=== PATIENT | male | born 1950 | race Caucasian/White ===

== ENCOUNTER 2016-11-15 16:08 | Emergency (ER) | payer MEDICARE, OTHER ==
[~2016-11-15 16:08] MED LIST: ALDACTONE25 MG PO; AMLODIPINE BESY10 MG PO; ASPIRIN CHEWABL81 MG PO; BRILINTA90 MG PO; COREG 3.125M3.125 MG PO; ELIQUIS5 MG PO; LASIX40 MG PO; LIPITOR TAB 2020 MG PO; LISINOPRIL20 MG PO; NITROGLYCERIN0.4 MG SL
== END 2016-11-15 19:40 | disposition left against medical advice (07) ==
LOC: ER1 16:08
DX: Z53.21 Procedure and treatment not carried out due to patient leaving prior to being seen by health care provider (principal)

== ENCOUNTER → 2020-11-24 | Outpatient (CLI) | payer OTHER ==
[~2020-11-24] MED LIST changes: +AUGMENTIN 875-1 EACH PO; +BUMETANIDE1 MG PO; +BUMETANIDE2 MG PO; +BUMEX 1MG TABLET1 MG PO; +CARVEDILOL3.125 MG PO; +COREG 12.5MG12.5 MG PO; +COREG12.5 MG PO; +GLUCOTROL 10 MG10 MG PO; +GLUCOTROL5 MG PO; +HYDROCODON-ACE1 EAC4 PO; +K-TAB ER20 MEQ PO; +KLOR-CON M1010 MEQ PO; +LEVOFLOXACIN500 MG PO; +LEVOTHYROXINE75 MC1 PO; +LISINOPRIL10 MG PO; +LISINOPRIL2.5 MG PO; +LISINOPRIL5 MG PO; +ZANTAC300 MG PO
== END ==
LOC: EXRD 11:18
DX: Z45.02 Encounter for adjustment and management of automatic implantable cardiac defibrillator (principal); I48.0 Paroxysmal atrial fibrillation; I42.0 Dilated cardiomyopathy; I50.22 Chronic systolic (congestive) heart failure; R91.8 Other nonspecific abnormal finding of lung field
CPT/HCPCS: 71046

== ENCOUNTER → 2020-11-26 | Outpatient (CLI) | payer MEDICARE, OTHER ==
[2020-11-26 07:56] LABS: HEMOGLOBIN 12.9 gm/dl (14.0-17.5); RED BLOOD COUNT 4.65 M/UL (4.20-5.50); WHITE BLOOD COUNT 5.9 K/UL (4.5-11.0)
== END ==
LOC: CATH 07:04
PROVIDERS: Internal Medicine Cardiovascular Disease
DX: Z45.02 Encounter for adjustment and management of automatic implantable cardiac defibrillator (principal); I42.0 Dilated cardiomyopathy; I12.9 Hypertensive chronic kidney disease with stage 1 through stage 4 chronic kidney disease, or unspecified chronic kidney disease; E11.22 Type 2 diabetes mellitus with diabetic chronic kidney disease; N18.9 Chronic kidney disease, unspecified; I50.23 Acute on chronic systolic (congestive) heart failure; I25.10 Atherosclerotic heart disease of native coronary artery without angina pectoris; I48.21 Permanent atrial fibrillation; F32.9 Major depressive disorder, single episode, unspecified; K21.9 Gastro-esophageal reflux disease without esophagitis; E03.9 Hypothyroidism, unspecified; I25.2 Old myocardial infarction; M19.90 Unspecified osteoarthritis, unspecified site; Z87.891 Personal history of nicotine dependence; Z98.61 Coronary angioplasty status; Z98.890 Other specified postprocedural states; Z79.01 Long term (current) use of anticoagulants; Z79.82 Long term (current) use of aspirin; Z79.84 Long term (current) use of oral hypoglycemic drugs; Z79.899 Other long term (current) drug therapy
CPT/HCPCS: 36415; 80048; 85025; 93641; 99152; 99153; C1882; J1200; J2250; J3010; J3370; J3480; J7040; J7050

== ENCOUNTER 2021-10-13 16:40 | Inpatient (IN) | payer MEDICARE, OTHER ==
[~2021-10-13] VITALS: Ht 172.7 cm; Wt 94.3 kg
[~2021-10-13 16:40] MED LIST changes: -LEVOTHYROXINE75 MC1 PO; +LEVOTHYROXINE75 MCG PO; +LIPITOR80 MG PO
[2021-10-13 19:29] LABS: HEMOGLOBIN 11.6 gm/dl (14.0-17.5); RED BLOOD COUNT 3.9 M/UL (4.20-5.50); WHITE BLOOD COUNT 10.7 K/UL (4.5-11.0)
[2021-10-14 08:30] LABS: HEMOGLOBIN 11.3 gm/dl (14.0-17.5); RED BLOOD COUNT 3.86 M/UL (4.20-5.50)
[2021-10-14] MEDS ORDERED: CARVEDILOL3.125 MG PO (10:30)
[2021-10-14] MEDS ORDERED: SERTRALINE HCL25 MG PO (10:31)
[2021-10-14] MEDS ORDERED: ISOSORBIDE MONO30 MG PO (10:31)
[2021-10-17 03:01] LABS: HEMOGLOBIN 10.6 gm/dl (14.0-17.5); RED BLOOD COUNT 3.63 M/UL (4.20-5.50); WHITE BLOOD COUNT 6.6 K/UL (4.5-11.0)
[2021-10-21 02:20] LABS: HEMOGLOBIN 10.2 gm/dl (14.0-17.5); RED BLOOD COUNT 3.48 M/UL (4.20-5.50); WHITE BLOOD COUNT 7.1 K/UL (4.5-11.0)
--- NOTE | 2021-10-21 11:12 | NUR ---
PATIENT SKIN TEAR TO RIGHT HAND, CLEANED AND DERMABOND APPLIED. PATIENT TOLERATED WELL, BLEEDING STOPPED.
[2021-10-22 02:59] LABS: HEMOGLOBIN 10.2 gm/dl (14.0-17.5); RED BLOOD COUNT 3.48 M/UL (4.20-5.50)
--- NOTE | 2021-10-22 10:15 | NUR ---
AT 0900 PATIENT SIGNED CONSENT FOR THORACENTESIS BY DR SARMIENTO AFTER PROCEDUE EXPLAINED IN DETAIL. PATIENT TOLERATED PROCEDURE WELL. 1400ML FLUID REMOVED. BANDAID APPLIED AT INSERTION SITE ON RIGHT BACK. RECHECKED AT 10AM NO BLEEDING NOTED. WILL CONTINUE TO MONITOR
[2021-10-23 03:30] LABS: HEMOGLOBIN 9.9 gm/dl (14.0-17.5); RED BLOOD COUNT 3.36 M/UL (4.20-5.50); WHITE BLOOD COUNT 6.7 K/UL (4.5-11.0)
[2021-10-24 05:08] LABS: RED BLOOD COUNT 3.42 M/UL (4.20-5.50); WHITE BLOOD COUNT 6.2 K/UL (4.5-11.0)
[2021-10-25 11:21] LABS: HEMOGLOBIN 10.1 gm/dl (14.0-17.5); RED BLOOD COUNT 3.41 M/UL (4.20-5.50); WHITE BLOOD COUNT 8.2 K/UL (4.5-11.0)
[2021-10-26 01:44] LABS: HEMOGLOBIN 10.1 gm/dl (14.0-17.5); RED BLOOD COUNT 3.42 M/UL (4.20-5.50); WHITE BLOOD COUNT 8.9 K/UL (4.5-11.0)
--- NOTE | 2021-10-26 06:11 | NUR ---
I HAD [id number] IN OUT
--- NOTE | 2021-10-27 09:51 | NUR ---
PER DR LILLY PATIENT BLADDER IRRIGATION STOPPED, PATIENT RESTARTED ON DOBUTAMINE DRIP. AWARE
--- NOTE | 2021-10-27 09:57 | NUR ---
GETTING PATIENT UP TO CHAIR, HE HAS BECOME WEAKER, AND IS NOW AN ASSIST OF 2
[2021-10-28 02:12] LABS: HEMOGLOBIN 9.7 gm/dl (14.0-17.5); RED BLOOD COUNT 3.25 M/UL (4.20-5.50)
[2021-10-28 02:15] LABS: WHITE BLOOD COUNT 12.3 K/UL (4.5-11.0)
== END 2021-10-28 20:40 | DRG 682 ==
LOC: ER1 16:40 → CDU 23:50 → PROG CARE 23:50 → CDU 23:50 → MED SURG 4 10-14 09:23 → PROG CARE 10-14 22:02
PROVIDERS: Emergency Medicine; Internal Medicine; Internal Medicine Infectious Disease; Internal Medicine Nephrology; Internal Medicine Pulmonary Disease; ADMIT Internal Medicine
PROC: B24BZZZ Ultrasonography of Heart with Aorta (ICD-10-PCS; principal; 2021-10-21)
PROC: 0W993ZZ Drainage of Right Pleural Cavity, Percutaneous Approach (ICD-10-PCS; 2021-10-22)
PROC: 0W993ZZ Drainage of Right Pleural Cavity, Percutaneous Approach (ICD-10-PCS; 2021-10-28)
DX: N17.9 Acute kidney failure, unspecified (principal); I50.23 Acute on chronic systolic (congestive) heart failure; J96.21 Acute and chronic respiratory failure with hypoxia; I13.0 Hypertensive heart and chronic kidney disease with heart failure and stage 1 through stage 4 chronic kidney disease, or unspecified chronic kidney disease; E87.1 Hypo-osmolality and hyponatremia; J90 Pleural effusion, not elsewhere classified; J94.2 Hemothorax; D63.1 Anemia in chronic kidney disease; I25.10 Atherosclerotic heart disease of native coronary artery without angina pectoris; N18.30 Chronic kidney disease, stage 3 unspecified; Z66 Do not resuscitate; K74.60 Unspecified cirrhosis of liver; Z20.822 Contact with and (suspected) exposure to COVID-19; H91.90 Unspecified hearing loss, unspecified ear; D50.9 Iron deficiency anemia, unspecified; E11.22 Type 2 diabetes mellitus with diabetic chronic kidney disease; I48.0 Paroxysmal atrial fibrillation; E11.40 Type 2 diabetes mellitus with diabetic neuropathy, unspecified; I27.21 Secondary pulmonary arterial hypertension; E03.9 Hypothyroidism, unspecified; S82.401A Unspecified fracture of shaft of right fibula, initial encounter for closed fracture; N40.1 Benign prostatic hyperplasia with lower urinary tract symptoms; R33.8 Other retention of urine; Z96.651 Presence of right artificial knee joint; I25.5 Ischemic cardiomyopathy; R31.0 Gross hematuria; E87.6 Hypokalemia; Z79.01 Long term (current) use of anticoagulants; Z79.899 Other long term (current) drug therapy; Z98.890 Other specified postprocedural states; Z95.810 Presence of automatic (implantable) cardiac defibrillator; Z79.4 Long term (current) use of insulin; Z87.891 Personal history of nicotine dependence; Z79.82 Long term (current) use of aspirin; Z91.81 History of falling; Z95.5 Presence of coronary angioplasty implant and graft; Z88.8 Allergy status to other drugs, medicaments and biological substances; Z82.49 Family history of ischemic heart disease and other diseases of the circulatory system; I25.2 Old myocardial infarction
CPT/HCPCS: ECHO; 0240U; 36415; 71045; 71046; 73610; 80048; 80053; 81001; 82140; 82436; 82550; 82553; 82570; 82728; 82803; 82962; 83036; 83540; 83550; 83615; 83690; 83735; 83880; 84100; 84132; 84133; 84156; 84157; 84300; 84439; 84443; 84484; 84550; 85018; 85025; 85027; 85610; 85730; 86140; 87070; 87205; 93005; 93306; 94640; 94664; 94760; 96374; 96376; 97110; 97116; 97116-GP-CQ; 97161; 97164; 97166; 97168; 99285; C1729; G0378; J1205; J1250; J1756; J1940; J2405; J7030